=== PATIENT | female | born 1940 | race Caucasian/White ===

== ENCOUNTER 2017-09-30 11:36 | Emergency (ER) | payer MEDICARE, OTHER ==
[~2017-09-30] VITALS: Ht 152.4 cm; Wt 75.0 kg
[2017-09-30] MEDS ORDERED: KEFLEX500 MG PO (12:10)
[2017-09-30 12:27] VITALS: BP 146/67
== END 2017-09-30 12:27 | disposition home or self-care (01) ==
LOC: ED 11:36
PROC: 0HQGXZZ Repair Left Hand Skin, External Approach (ICD-10-PCS; principal; 2017-09-30)
DX: S61.211A Laceration without foreign body of left index finger without damage to nail, initial encounter (principal); I10 Essential (primary) hypertension; E03.9 Hypothyroidism, unspecified; G25.81 Restless legs syndrome; W26.8XXA Contact with other sharp object(s), not elsewhere classified, initial encounter

== ENCOUNTER 2017-10-07 10:04 | Emergency (ER) | payer MEDICARE, OTHER ==
[~2017-10-07] VITALS: Ht 152.4 cm; Wt 72.0 kg
[~2017-10-07 10:04] MED LIST: KEFLEX500 MG PO
[2017-10-07] MEDS ORDERED: HYDROCHLOROT25 MG PO (11:11)
[2017-10-07] MEDS ORDERED: PRAMIPEXOLE D0.25 MG PO (11:12)
[2017-10-07] MEDS ORDERED: LEVOTHYROXIN75 MC1 PO (11:12)
[2017-10-07 11:30] VITALS: BP 144/74
== END 2017-10-07 11:30 | disposition home or self-care (01) ==
LOC: ED 10:04
DX: S61.211D Laceration without foreign body of left index finger without damage to nail, subsequent encounter (principal)

== ENCOUNTER 2021-11-17 15:01 | Observation (INO) | payer MEDICARE ==
[~2021-11-17] VITALS: Ht 154.9 cm; Wt 70.9 kg
[~2021-11-17 15:01] MED LIST changes: +HYDROCHLOROT25 MG PO; +LEVOTHYROXIN75 MC1 PO; +PRAMIPEXOLE D0.25 MG PO; +RECLAST5 MG/100 M IV
--- NOTE | 2021-11-17 15:15 | NUR ---
PT TO ROOM W/STEADY GAIT.
[2021-11-17 16:08] LABS: HEMATOCRIT 39.4 % (37.0-47.0); HEMOGLOBIN 13.2 g/dl (12.0-16.0); IMMATURE GRANULOCYTES 0.6 % (0.0-5.0); MEAN CELL VOLUME 92.7 fL CALC (80.0-100.0); MEAN CORPUSCULAR HGB 31.1 pG CALC (26.0-32.0); MEAN CORPUSCULAR HGB CONC 33.5 g/dL CAL (32.0-36.0); NEUT# 6.98 thou/uL (2.00-7.15); RED BLOOD COUNT 4.25 mill/uL (4.20-5.60); RED CELL DISTRI WIDTH 13.1 % (11.5-15.5)
[2021-11-17 16:25] LABS: ALBUMIN 3.6 g/dL (3.2-5.0); ALKALINE PHOSPHATASE 56 u/l (38-126); ANION GAP 10 (6-22 (CALC)); BILIRUBIN, TOTAL 0.6 mg/dL (0.0-1.4); BUN 10 mg/dL (8-23); BUN/CREATININE RATIO 10 (12-20 (CALC)); CARBON DIOXIDE 33 mmol/l (22-30); CHLORIDE 93 mmol/l (95-108); GFR 53 ML/MIN (>=60 (CALC)); GFR FOR AFR.AMER. > 60 ML/MIN (>=60 (CALC)); POTASSIUM 2.6 mmol/l (3.5-5.1); SGOT/AST 20 u/l (9-36); SODIUM 133 mmol/l (137-146); TOTAL PROTEIN 7.1 g/dL (6.3-8.2)
--- NOTE | 2021-11-17 16:30 | NUR ---
PT RETURNED FROM CT ADVISED OF WAIT TIME.
--- NOTE | 2021-11-17 17:30 | NUR ---
PT AWARE OF CT RESULTS. RESP EVEN UNLABORED. IV SITE HEALTHY
--- NOTE | 2021-11-17 18:30 | NUR ---
IV MEDICATIONS DISCUSSED W/PT. PT VOICED UNDERSTANDING.
[2021-11-17] MEDS ORDERED: NORVASC5 M1 PO (19:38)
[2021-11-17] MEDS ORDERED: BONIVA150 M1 PO (19:39)
--- NOTE | 2021-11-17 19:41 | NUR ---
PT RESTING ON STRETCHER. IV MEDS INFUSING. SITE HEALTHY. PT AWARE OF ADMIT OVER NIGHT AND PURPOSE OF SAME. VSS
--- NOTE | 2021-11-17 20:50 | NUR ---
PT TOOK HER OWN PO MEDICATION FOR RESTLESS LEG. DR WING FUNK.
--- NOTE | 2021-11-17 21:00 | NUR ---
PT TO AND FROM BR WITHOUT ASSIST COMFORT MEASURES PROVIDED.
--- NOTE | 2021-11-17 22:15 | NUR ---
MANUAL BP CHECK 110/46. PER PT HER BP USUALLY RUNS AROUNG 116/50. PT RESTING ON BED. REPORT PROVIDED TO PENNY HARRINGTON.
--- NOTE | 2021-11-17 22:40 | NUR ---
UP TO BR WITH ASSIST.
--- NOTE | 2021-11-18 00:05 | NUR ---
PT UP TO BR TO VOID. C/O BURNING AT IV SITE (POTASSIUM INFUSION). SITE GOOD. WARM COMPRESES APPLIED.
--- NOTE | 2021-11-18 01:00 | NUR ---
FRESH HOT PACK TO LEFT AC. SITE GOOD.
--- NOTE | 2021-11-18 02:45 | NUR ---
PT RESTING. VSS.
--- NOTE | 2021-11-18 04:30 | NUR ---
PT SLEEPING. VSS. PT CHECKED Q1H. NAD.
--- NOTE | 2021-11-18 05:39 | NUR ---
PT SLEEPING. NAD. VSS.
[2021-11-18 06:07] LABS: HEMATOCRIT 40.4 % (37.0-47.0); HEMOGLOBIN 13.4 g/dl (12.0-16.0); IMMATURE GRANULOCYTES 0.1 % (0.0-5.0); MEAN CELL VOLUME 93.7 fL CALC (80.0-100.0); MEAN CORPUSCULAR HGB 31.1 pG CALC (26.0-32.0); MEAN CORPUSCULAR HGB CONC 33.2 g/dL CAL (32.0-36.0); NEUT# 5.62 thou/uL (2.00-7.15); RED BLOOD COUNT 4.31 mill/uL (4.20-5.60); RED CELL DISTRI WIDTH 13.3 % (11.5-15.5)
--- NOTE | 2021-11-18 06:31 | NUR ---
PT GIVEN SYNTHROID. WATER. IV SITE GOOD. PT UP TO BR TO VOID. NAD. VSS
[2021-11-18 06:48] LABS: ALBUMIN 3.2 g/dL (3.2-5.0); ALKALINE PHOSPHATASE 55 u/l (38-126); BILIRUBIN, TOTAL 0.8 mg/dL (0.0-1.4); BUN 9 mg/dL (8-23); BUN/CREATININE RATIO 14 (12-20 (CALC)); CARBON DIOXIDE 28 mmol/l (22-30); CHLORIDE 100 mmol/l (95-108); CREATININE 0.6 mg/dL (0.5-1.0); GFR > 60 ML/MIN (>=60 (CALC)); GFR FOR AFR.AMER. > 60 ML/MIN (>=60 (CALC)); SGOT/AST 20 u/l (9-36); SODIUM 136 mmol/l (137-146); TOTAL PROTEIN 6.2 g/dL (6.3-8.2)
[2021-11-18 06:57] LABS: ANION GAP 12 (6-22 (CALC)); POTASSIUM 3.5 mmol/l (3.5-5.1)
[2021-11-18 06:59] LABS: C-REACTIVE PROTEIN 15.2 mg/dL (0-0.9)
--- NOTE | 2021-11-18 07:00 | NUR ---
PT AWAKE ALERT AND IN NO DISTRESS. IVF INFUSING WITHOUT DIFFICULTY. IV SITE PATENT WITHOUT REDNESS.
--- NOTE | 2021-11-18 08:30 | NUR ---
PT GIVEN BREAKFAST TRAY AND OFFERED TO WASH UP THIS AM. PT DECLINED WASH UP BUT SITS ON SIDE OF BED. PT PLEASANT AND COOPERATIVE AND IN NO DISTRESS
--- NOTE | 2021-11-18 09:30 | NUR ---
Reassessment of patient completed. No distress noted.
--- NOTE | 2021-11-18 10:30 | NUR ---
Reassessment of patient completed. No distress noted.
--- NOTE | 2021-11-18 11:30 | NUR ---
Reassessment of patient completed. No distress noted.
--- NOTE | 2021-11-18 11:45 | NUR ---
PATIENT'S ARRIVED TO TAKE HER HOME. PATIENT DISCHARGED WITH INSTRUCTIONS AND STEADY EVEN GAIT IN NO ACUTE DISTRESS. ALERT AND ORIENTED AND VERBALIZED UNDERSTANDING OF DC INSTRUCTIONS.
--- NOTE | 2021-11-18 11:52 | NUR ---
DISCUSSED SC INSTRUCTIONS WITH PT INCLUDING STOPPING HCTZ UNTIL SHE SEES PCP. PT STATES "I FEEL SO MUCH BETTER" LEFT VIA WC TO CAR WITHHUSBAND WAITING IN NO DISTRESS
[2021-11-18 11:55] VITALS: BP 112/44
== END 2021-11-18 11:52 | disposition home or self-care (01) ==
LOC: ED 15:01 → ED-I 18:01 → ED 18:19 → ED-I 18:20
PROVIDERS: Family Medicine; ADMIT Hospitalist; ATTEND Hospitalist
DX: U07.1 COVID-19 (principal); R07.89 Other chest pain; E87.6 Hypokalemia; E86.0 Dehydration; I10 Essential (primary) hypertension; E03.9 Hypothyroidism, unspecified; G25.81 Restless legs syndrome; T50.2X5A Adverse effect of carbonic-anhydrase inhibitors, benzothiadiazides and other diuretics, initial encounter
CPT/HCPCS: J1650; J3475

== ENCOUNTER 2022-07-30 23:04 | Emergency (ER) | payer MEDICARE ==
[~2022-07-30] VITALS: Ht 154.9 cm; Wt 75.0 kg
[~2022-07-30 23:04] MED LIST changes: +BONIVA150 M1 PO; +LORTAB5 PO; +MOTRIN800 MG PO; +NORVASC5 M1 PO
[2022-07-30 23:08] VITALS: BP 155/56
[2022-07-30] MEDS ORDERED: TRAZODONE50 MG PO (23:10)
[2022-07-30] MEDS ORDERED: HYDROCHLOROT12.5 M1 PO (23:11)
[2022-07-30 23:31] VITALS: BP 143/82
[2022-07-30 23:45] VITALS: BP 138/116
[2022-07-30 23:58] VITALS: BP 158/58
[2022-07-30 23:59] VITALS: BP 158/58
== END 2022-07-31 00:19 | disposition home or self-care (01) ==
LOC: ED 23:04
DX: S82.852A Displaced trimalleolar fracture of left lower leg, initial encounter for closed fracture (principal); I10 Essential (primary) hypertension; E03.9 Hypothyroidism, unspecified; W01.0XXA Fall on same level from slipping, tripping and stumbling without subsequent striking against object, initial encounter; Y93.89 Activity, other specified